=== PATIENT | male | born 1980 | race Caucasian/White ===

== ENCOUNTER 2018-01-22 19:55 | Emergency (ER) | payer BC, OTHER ==
[2018-01-22] MEDS ORDERED: Lidocaine 1% 50 ML MDV INJECT ONE (20:16)
--- NOTE | 2018-01-22 20:18 | EDM.PDOC ---
ED HPI GENERAL MEDICAL PROBLEM - General Chief Complaint: Laceration Stated Complaint: LEFT HAND MIDDLE FINGER CUT Time Seen by Provider: 01/22/18 20:04 Source of Information: Reports: Patient History Limitations: Reports: No Limitations - History of Present Illness INITIAL COMMENTS - FREE TEXT/NARRATIVE: Patient is a 37 y/o male who presents to the E.D. complaining of crush injury with laceration to the distal phalanx to the left middle finger. This was injured earlier to day while using a post driver license agent. States he accidentally got the affected finger crushed between the driver license agent and post injuring the affected finger. Bleeding controlled priorto admission. Tetanus is uptodate. Denies any pain to the remaining fingers, hand, wrist, and/or forearm. Denies any n/t or decrease range in motion to the affected finger. He offers no additional complaints. Left 3-Middle finger Pain Score (Numeric/FACES): 1 - Related Data Allergies Allergy/AdvReac Type Severity Reaction Status Date / Time No Known Allergies Allergy Verified 01/22/18 20:04 Home Meds: Home Meds . [No Known Home Meds] 07/01/14 [History] Social & Family History - Tobacco Use Smoking Status *Q: Never Smoker - Recreational Drug Use Recreational Drug Use: No ED ROS GENERAL - Review of Systems Review Of Systems: ROS reveals no pertinent complaints other than HPI. ED EXAM, SKIN/RASH Exam: See Below Exam Limited By: No Limitations General Appearance: Alert, WD/WN, No Apparent Distress Ears: Hearing Grossly Normal Nose: Normal Inspection Throat/Mouth: Normal Voice, No Airway Compromise Neck: Normal Inspection Respiratory/Chest: No Respiratory Distress, No Accessory Muscle Use Cardiovascular: Normal Peripheral Pulses, Regular Rate, Rhythm Peripheral Pulses: 4+: Radial (L) Extremities: Other (Approx 1.5 cm deep laceration to the distal phalanx affecting the root of the nail. Small portion of the nail at the base has been pulled away with nailbed tissue protruding through. Bleeding controlled. No sensory/motor deficits noted. No painwith palpation of remaining fingers, hand, wrist, and/or forearm. ) Neurological: Alert, Oriented, CN II-XII Intact, Normal Cognition, No Motor/ Sensory Deficits Psychiatric: Normal Affect, Normal Mood Skin: Warm, Dry, Normal Color ED SKIN PROCEDURES - Laceration/Wound Repair Left Finger Lac/Wound length In cm: 1.5 Appearance: Subcutaneous Distal NVT: Neuro & Vascular Intact Anesthetic Type: Local Local Anesthesia - Lidocaine (Xylocaine): 1% Plain Local Anesthetic Volume: 4cc Skin Prep: Chlorhexidine (Hibiciens), Saline, Sterile Drape Exploration/Debridement/Repair: Wound Explored, In a Bloodless Field, Explored to Base, No Foreign Material Found Closed with: Sutures Suture Size: 4-0 # of Sutures: 3 Suture Type: Prolene, Interrupted, Simple Sterile Dressing Applied: Nurse Tetanus Status Addressed: Yes Complications: No - Splinting Left 3rd Digit Pre-Procedure NV Status: Normal Post-Procedure NV Status: Normal Splint Material: Aluminum-Foam Splint Design: Volar Applied & Form Fitted By: Nurse Provider Post-Splint Application NV Check: NV Status Normal, Good Position Complications: No Course - Vital Signs Last Recorded V/S: Last Vital Signs Temp 98.3 F 01/22/18 20:00 Pulse 73 01/22/18 20:00 Resp 18 01/22/18 20:00 BP 123/87 01/22/18 20:00 Pulse Ox 97 01/22/18 20:00 - Orders/Labs/Meds Orders: Active Orders 24 hr Category Date Time Status Fingers Third Digit Lt F2 [CR] Stat Exams 01/22/18 20:14 Taken Meds: Medications Discontinued Medications Generic Name Dose Route Start Last Admin Trade Name Sauloq PRN Reason Stop Dose Admin Cefazolin Sodium 1 gm 01/22/18 21:34 01/22/18 22:47 Ancef IM 01/22/18 21:35 1 gm ONETIME ONE Administration Lidocaine HCl 50 ml 01/22/18 20:16 01/22/18 22:48 Xylocaine 1% INJECT 01/22/18 20:17 50 ml ONETIME ONE Administration - Re-Assessments/Exams Free Text/Narrative Re-Assessment/Exam: Ordered x-ray of the left middle finger and also 1% lidocaine 50 mls. Patient states tetanus status is up-to-date. 01/22/18 20:31 X-ray of the middle finger reveals moderately displaced fracture to the distal phalanx. 2039 Ring block with 1% lidocaine performed using sterile precautions with adequate anesthesia. Examination of the laceration site extends through the dorsal root of the nail. 01/22/18 20:[address] [facility]. They will call back after finishing with another call. 01/22/18 21:[address] Yandel French production control manager Orthopedic Surgeon with [facility]. Requested patient be evaluated this coming Monday in the clinic with plans to schedule for surgery on . Request we wash out laceration as best as possible, close skin with sutures, splint, and discharge on a antibiotic. Ordered Ancef 1 g IM. Laceration closed with no complications by Brandee SHANKAR. Tube gauze along with splint applied. Will discharge patient home with instructions as documented. Departure - Departure Time of Disposition: 22:39 Disposition: Home, Self-Care 01 Condition: Good Clinical Impression: Fracture, finger, distal phalanx, open Qualifiers: Encounter type: initial encounter Finger: middle finger Fracture alignment: displaced Laterality: left Qualified Code(s): S62.633B - Displaced fracture of distal phalanx of left middle finger, initial encounter for open fracture Laceration of finger nail bed Qualifiers: Encounter type: initial encounter Qualified Code(s): S61.319A - Laceration without foreign body of unspecified finger with damage to nail, initial encounter - Discharge Information Instructions: Laceration Care, Adult, [id number], Stitches, Simón, or Adhesive Wound Closure, [id number], Nail Bed Laceration Referrals: Yandel French MD [Ordering Only Provider] - Forms: ED Department Discharge Additional Instructions: Cleanse site twice daily with soap and water, pat dry, reapply triple antibiotic ointment. Keep clean and dry. Continue to wear the aluminum splint as directed. [facility] to make an appt for this coming Monday with plans for surgery the following day. Elevate when able to reduce any swelling and pain. Apply ice to the affected area 4 times daily, 20 minutes in duration, do not apply ice directly on the skin. Take ibuprofen and Tylenol in alternating fashion for discomfort. For severe pain take [place] one tab every [address] not drive while taking the [place]. Take Keflex one tab 4 times a day for 10 days. - My Orders Last 24 Hours: My Active Orders 01/22/18 20:14 Fingers Third Digit Lt F2 [CR] Stat - Assessment/Plan Last 24 Hours: My Active Orders 01/22/18 20:14 Fingers Third Digit Lt F2 [CR] Stat
[2018-01-22] MEDS ORDERED: ceFAZolin 1 GM Vial IM ONE (21:34)
--- NOTE | 2018-01-23 10:46 | CR ---
Left third finger: Four views of the left third finger were obtained. Comparison: No prior finger exam. Slightly comminuted and mildly displaced fracture is noted within the distal phalanx of the third finger. Articular extension is seen. Soft tissue swelling is noted. No proximal bony abnormality is seen. Impression: 1. Fracture within the distal phalanx of the left third finger with soft tissue swelling. Diagnostic code #3
== END 2018-01-22 22:54 | disposition home or self-care (01) ==
LOC: JD.ED 19:55
DX: S62.633B Displaced fracture of distal phalanx of left middle finger, initial encounter for open fracture (principal); W23.1XXA Caught, crushed, jammed, or pinched between stationary objects, initial encounter
CPT/HCPCS: 12001; 73140; 96372; 99283; J0690; 29130

== ENCOUNTER 2021-06-14 11:06 | Emergency (ER) | payer BC, OTHER ==
[2021-06-14] MEDS ORDERED: Sodium Chloride 0.9% 10 ML Syringe FLUSH PRN (11:33)
--- NOTE | 2021-06-14 12:33 | EDM.PDOC ---
ED HPI GENERAL MEDICAL PROBLEM - General Chief Complaint: Cardiovascular Problem Stated Complaint: SOB Time Seen by Provider: 06/14/21 11:20 Source of Information: Reports: Patient History Limitations: Reports: No Limitations - History of Present Illness INITIAL COMMENTS - FREE TEXT/NARRATIVE: 40-year-old male presents the emergency department today with complaints of heart palpitations and "fuzziness "noted in his head. Patient states that he does have a history of SVT with ablation. States it was sometime between 2011 and 2013. He states that since then he has not had any issues with palpitations. He does not take any medications. He does not smoke. He drinks 1 cup of coffee daily. States that palpitations started about 3 or 4 days ago and then states it makes him feel cloudy in his head. He denies any dizziness syncope or near syncope. He denies any blurred vision or double vision. He states he is otherwise healthy. He states he does not have a primary care provider. He has not had any recent fever, chills, nausea, vomiting, abdominal pain or diarrhea. He has not had any headache, cough sore throat or other respiratory symptoms. - Related Data Allergies Allergy/AdvReac Type Severity Reaction Status Date / Time No Known Allergies Allergy Verified 06/14/21 11:21 Home Meds: Home Meds . [No Known Home Meds] 07/01/14 [History] Past Medical History Cardiovascular History: Reports: Afib, Other (See Below) Other Cardiovascular History: SVT - Past Surgical History Cardiovascular Surgical History: Reports: Cardiac Ablation Social & Family History - Family History Family Medical History: No Pertinent Family History - Tobacco Use Tobacco Use Status *Q: Never Tobacco User - Caffeine Use Caffeine Use: Reports: Coffee, Soda - Recreational Drug Use Recreational Drug Use: No ED ROS GENERAL - Review of Systems Review Of Systems: Comprehensive ROS is negative, except as noted in HPI. ED EXAM, GENERAL - Physical Exam Exam: See Below Exam Limited By: No Limitations General Appearance: Alert, WD/WN, No Apparent Distress Ears: Normal External Exam, Hearing Grossly Normal Nose: Normal Inspection Throat/Mouth: Normal Inspection, Normal Lips, Normal Voice, No Airway Compromise Head: Atraumatic Neck: Normal Inspection, Supple Respiratory/Chest: No Respiratory Distress, Lungs Clear, Normal Breath Sounds, No Accessory Muscle Use, Chest Non-Tender Cardiovascular: Normal Peripheral Pulses, Regular Rate, Rhythm, No Edema, No Mu rmur Peripheral Pulses: 2+: Radial (L), Radial (R) GI/Abdominal: Normal Bowel Sounds, Soft, Non-Tender, No Distention (Male) Exam: Deferred Rectal (Males) Exam: Deferred Back Exam: Normal Inspection, Full Range of Motion Extremities: Normal Inspection, Normal Range of Motion, Non-Tender, No Pedal Edema, Normal Capillary Refill Neurological: Alert, Oriented, Normal Cognition Psychiatric: Normal Affect, Normal Mood Skin Exam: Warm, Dry, Intact, Normal Color, No Rash Lymphatic: No Adenopathy #1 Interpretation EKG Date: 06/14/21 Time: 11:27 Rhythm: NSR Rate (Beats/Min): 66 [place]: Normal P-Wave: Present QRS: Normal ST-T: Normal QT: Normal EKG Interpretation Comments: Per Dr. Hennessy interpretation: Sinus rhythm at 66 bpm; baseline wander in leads II, III and aVF Course - Vital Signs Text/Narrative:: As stated above patient with a history of SVT with ablation sometime between 2011 and 2013. Patient has been asymptomatic since however he developed palpitations approximately 3 to 4 days ago. Denies any recent fever, chills, nausea vomiting or diarrhea. He denies any blurred vision or double vision. He denies any dizziness, syncope or near syncope. He denies any chest pain or shortness of breath associated with the palpitations. I have ordered an EKG, portable chest x-ray, labs to include a CBC, CMP, magnesium, troponin and a TSH level. Last Recorded V/S: Last Vital Signs Temp 97.2 F 06/14/21 11:15 Pulse 73 06/14/21 11:15 Resp 16 06/14/21 11:15 BP 144/87 H 06/14/21 11:15 Pulse Ox 100 06/14/21 11:15 - Orders/Labs/Meds Orders: Active Orders 24 hr Category Date Time Status EKG Documentation Completion [RC] STAT Care 06/14/21 11:34 Active Chest 1V Frontal [CR] Stat Exams 06/14/21 11:33 Taken Sodium Chloride 0.9% [Saline Flush] Med 06/14/21 11:33 Active 10 ml FLUSH ASDIRECTED PRN Saline Lock Insert [OM.PC] Stat Oth 06/14/21 11:33 Ordered Medication Orders Sodium Chloride (Sodium Chloride 0.9% 10 Ml Syringe) 10 ml FLUSH ASDIRECTED PRN PRN Reason: Keep Vein Open Last Admin: 06/14/21 12:00 Dose: 10 ml Documented by: JUAN Labs: Laboratory Tests 06/14/21 06/14/21 06/14/21 Range/Units 11:45 11:45 11:45 WBC 6.35 (4.23-9.07) K/mm3 RBC 5.65 (4.63-6.08) M/mm3 Hgb 16.9 D (13.7-17.5) gm/dl Hct 49.5 (40.1-51.0) % MCV 87.6 (79.0-92.2) fl MCH 29.9 (25.7-32.2) pg MCHC 34.1 (32.2-35.5) g/dl RDW Std Deviation 41.4 (35.1-43.9) fL Plt Count 220 (163-337) K/mm3 MPV 9.3 L (9.4-12.3) fl Neut % (Auto) 55.0 (34.0-67.9) % Lymph % (Auto) 36.2 (21.8-53.1) % [place] % (Auto) 7.4 (5.3-12.2) % Eos % (Auto) 0.6 L (0.8-7.0) Baso % (Auto) 0.5 (0.1-1.2) % Neut # (Auto) 3.49 (1.78-5.38) K/mm3 Lymph # (Auto) 2.30 (1.32-3.57) K/mm3 [place] # (Auto) 0.47 (0.30-0.82) K/mm3 Eos # (Auto) 0.04 (0.04-0.54) K/mm3 Baso # (Auto) 0.03 (0.01-0.08) K/mm3 D-Dimer, Quantitative < 0.19 L (0.19-0.50) mg/L Sodium 144 (136-145) mEq/L Potassium 3.9 (3.5-5.1) mEq/L Chloride 105 (98-107) mEq/L Carbon Dioxide 27 (21-32) mEq/L Anion Gap 15.9 H (5-15) BUN 16 (7-18) mg/dL Creatinine 1.1 (0.7-1.3) mg/dL Est Cr Clr Drug Dosing 100.02 mL/min Estimated GFR (MDRD) > 60 (>60) mL/min BUN/Creatinine Ratio 14.5 (14-18) Glucose 95 (70-99) mg/dL Calcium 9.5 (8.5-10.1) mg/dL Magnesium 2.2 (1.8-2.4) mg/dL Total Bilirubin 1.3 H (0.2-1.0) mg/dL AST 29 (15-37) U/L ALT 37 (16-63) U/L Alkaline Phosphatase 75 (46-116) U/L Troponin I < 0.017 (0.00-0.056) ng/mL C-Reactive Protein <0.2 (<1.0) mg/dL Total Protein 8.1 (6.4-8.2) g/dl Albumin 4.6 (3.4-5.0) g/dl Globulin 3.5 gm/dL Albumin/Globulin Ratio 1.3 (1-2) TSH 3rd Generation 1.488 (0.358-3.74) uIU/mL SARS-CoV-2 RNA (IVY) (NEGATIVE) 06/14/21 Range/Units 11:55 WBC (4.23-9.07) K/mm3 RBC (4.63-6.08) M/mm3 Hgb (13.7-17.5) gm/dl Hct (40.1-51.0) % MCV (79.0-92.2) fl MCH (25.7-32.2) pg MCHC (32.2-35.5) g/dl RDW Std Deviation (35.1-43.9) fL Plt Count (163-337) K/mm3 MPV (9.4-12.3) fl Neut % (Auto) (34.0-67.9) % Lymph % (Auto) (21.8-53.1) % [place] % (Auto) (5.3-12.2) % Eos % (Auto) (0.8-7.0) Baso % (Auto) (0.1-1.2) % Neut # (Auto) (1.78-5.38) K/mm3 Lymph # (Auto) (1.32-3.57) K/mm3 [place] # (Auto) (0.30-0.82) K/mm3 Eos # (Auto) (0.04-0.54) K/mm3 Baso # (Auto) (0.01-0.08) K/mm3 D-Dimer, Quantitative (0.19-0.50) mg/L Sodium (136-145) mEq/L Potassium (3.5-5.1) mEq/L Chloride (98-107) mEq/L Carbon Dioxide (21-32) mEq/L Anion Gap (5-15) BUN (7-18) mg/dL Creatinine (0.7-1.3) mg/dL Est Cr Clr Drug Dosing mL/min Estimated GFR (MDRD) (>60) mL/min BUN/Creatinine Ratio (14-18) Glucose (70-99) mg/dL Calcium (8.5-10.1) mg/dL Magnesium (1.8-2.4) mg/dL Total Bilirubin (0.2-1.0) mg/dL AST (15-37) U/L ALT (16-63) U/L Alkaline Phosphatase (46-116) U/L Troponin I (0.00-0.056) ng/mL C-Reactive Protein (<1.0) mg/dL Total Protein (6.4-8.2) g/dl Albumin (3.4-5.0) g/dl Globulin gm/dL Albumin/Globulin Ratio (1-2) TSH 3rd Generation (0.358-3.74) uIU/mL SARS-CoV-2 RNA (IVY) Negative (NEGATIVE) Meds: Medications Generic Name Dose Route Start Last Admin Trade Name Freq PRN Reason Stop Dose Admin Sodium Chloride 10 ml 06/14/21 11:33 06/14/21 12:00 Sodium Chloride 0.9% 10 Ml Syringe FLUSH 10 ml ASDIRECTED PRN Administration Keep Vein Open - Re-Assessments/Exams Free Text/Narrative Re-Assessment/Exam: 06/14/21 14:04 Nothing acute is appreciated on portable view of the chest. Formal radiologist report is pending. 06/14/21 14:16 Hematology reveals a WBC of 6.35, hemoglobin 16.9, hematocrit 49.5, platelet count 220 D-dimer less than 0.19 Chemistry reveals a sodium of 144, potassium 3.9, anion gap 15.9, BUN 16, creatinine 1.1, glucose 95, magnesium 2.2, total bilirubin 1.3, AST 29, ALT 37, alk phos 75, troponin less than 0.017, C-reactive protein less than 0.2, TSH 1.488 Patient is Covid negative Patient will be discharged to home on a Holter monitor. He will then need to follow-up with her primary care provider and likely need to follow-up with cardiology services. Departure - Departure Time of Disposition: 14:24 Disposition: Home, Self-Care 01 Condition: Good Clinical Impression: Palpitations Referrals: PCP,None [Primary Care Provider] - Jayy Johnson MD [Physician] - Forms: ED Department Discharge Additional Instructions: You were seen in the emergency department today with complaints of palpitations. EKG, chest x-ray and labs are completed. All tests were unremarkable. Covid was negative. You will be placed on a 48-hour Holter monitor. This will then be read by a nuclear spectroscopist and the report will be sent to Dr. Jayy Hodges at [facility]. Recommend you schedule a follow-up appointment with him for early next week to get the results. You had mentioned following up with your nuclear spectroscopist and I think this would be warranted. Sepsis Event Note (ED) - Evaluation Sepsis Screening Result: No Definite Risk - Focused Exam Vital Signs: Vital Signs Temp Pulse Resp BP Pulse Ox 06/14/21 11:15 97.2 F 73 16 144/87 H 100 - My Orders Last 24 Hours: My Active Orders 06/14/21 11:33 Chest 1V Frontal [CR] Stat Sodium Chloride 0.9% [Saline Flush] 10 ml FLUSH ASDIRECTED PRN Saline Lock Insert [OM.PC] Stat 06/14/21 11:34 EKG Documentation Completion [RC] STAT - Assessment/Plan Last 24 Hours: My Active Orders 06/14/21 11:33 Chest 1V Frontal [CR] Stat Sodium Chloride 0.9% [Saline Flush] 10 ml FLUSH ASDIRECTED PRN Saline Lock Insert [OM.PC] Stat 06/14/21 11:34 EKG Documentation Completion [RC] STAT
--- NOTE | 2021-06-15 09:24 | CR ---
Chest: Portable view of the chest was obtained. Comparison: Prior chest x-ray of 09/11/12. Heart size and mediastinum are normal. Lungs are clear with no acute parenchymal change. No definite acute osseous abnormality is appreciated. Impression: 1. Nothing acute is seen on frontal chest x-ray. Diagnostic code #1
== END 2021-06-14 14:45 | disposition home or self-care (01) ==
LOC: JD.ED 11:06
DX: R00.2 Palpitations (principal); Z20.822 Contact with and (suspected) exposure to COVID-19
CPT/HCPCS: 36415; 71045; 71045-26; 80053; 83735; 84443; 84484; 85025; 85379; 86140; 93005; 93010; 93225; 93226; 99283; 99285-25; U0002